=== PATIENT | male | born 2000 | race Caucasian/White ===

== ENCOUNTER 2023-05-01 16:50 | Emergency (ER) | payer SELFPAY ==
[2023-05-01] MEDS ORDERED: Acetaminophen 325 MG TAB ONE (17:15)
[2023-05-01 18:09] LABS: SARS-CoV-2 NAA Rapid Test Not Detected (NotDetected)
== END 2023-05-01 17:49 | disposition home or self-care (01) ==
LOC: CSHERS 16:50
DX: B34.9 Viral infection, unspecified (principal); Z20.822 Contact with and (suspected) exposure to COVID-19
CPT/HCPCS: 99283